=== PATIENT | male | born 1970 | race Caucasian/White ===

== ENCOUNTER 2021-05-11 03:08 | Emergency (ER) | payer MEDICAID ==
[~2021-05-11] VITALS: Ht 177.8 cm; Wt 104.3 kg
[2021-05-11 03:21] VITALS: BP 77/51
== END 2021-05-11 03:55 | disposition left against medical advice (07) ==
LOC: ER 03:08
DX: R22.43 Localized swelling, mass and lump, lower limb, bilateral (principal); Z53.21 Procedure and treatment not carried out due to patient leaving prior to being seen by health care provider